=== PATIENT | male | born 1930 | race Caucasian/White ===

== ENCOUNTER 2019-08-31 10:53 | Inpatient (IN) | payer OTHER ==
[~2019-08-31] VITALS: Ht 170.2 cm; Wt 70.3 kg
[2019-08-31] MEDS ORDERED: FLOMAX0.4 MG PO (11:08)
[2019-08-31] MEDS ORDERED: FINASTERIDE1 MG PO (11:09)
[2019-08-31] MEDS ORDERED: DITROPAN XL10 MG PO (11:09)
[2019-08-31] MEDS ORDERED: NABUMETONE750 MG PO (11:10)
[2019-08-31] MEDS ORDERED: DULOXETINE HYDR20 MG PO (11:10)
[2019-08-31] MEDS ORDERED: PANTOPRAZOLE SO40 M1 PO (11:11)
[2019-08-31 11:57] LABS: CALCIUM 8.7 mg/dL (8.5-10.1); CARBON DIOXIDE 27.7 mmol/L (21-32); CHLORIDE SERUM 97 mmol/L (98-107); CREATININE SERUM 0.9 mg/dL (0.7-1.3); GLUCOSE SERUM 117 mg/dL (74-106); SODIUM SERUM 131 mmol/L (136-145)
[2019-08-31 12:07] LABS: ALBUMIN 3.8 g/dL (3.4-5.0); ALKALINE PHOSPHATASE 138 U/L (46-116); ALT/SGPT 20 U/L (16-63); AST/SGOT 19 U/L (15-37); C REACTIVE PROTEIN 0.2 mg/dL (<=0.9)
[2019-08-31 12:09] LABS: TOTAL PROTEIN, SERUM 6.1 g/dL (6.4-8.2)
--- NOTE | 2019-08-31 12:12 | NUR ---
1115 PT TO ER WITH C/O SOB X 1 MONTH. PT LIVES AT HOME WITH HIS SON AND STATES THAT HE DIDNT COME IN SOONER DUE TO HIS SONS AVAILABILITY. PT NOTED WITH SOB WHEN TALKING. PT IS AOX4. RESP ARE LABORED AND SHALLOW WITH DIMINISHED BREATH SOUNDS. SKIN IS WARM AND DRY. PT WITH NADN. PT BEING SCREEMED FOR COVID AT THIS TIME. PT ON SPECIAL PRECAUTIONS.
[2019-08-31 12:13] LABS: CK-MB 3.1 ng/mL (0-3.6)
[2019-08-31 12:14] LABS: T3 TOTAL 0.75 ng/mL
[2019-08-31 12:56] LABS: microscopic required? NO
[2019-08-31 13:04] LABS: FREE T4 1.61 ng/dL (0.76-1.46); FREE THYROXINE INDEX 4.5 ug/dL (1.4-4.5); T4(THYROXINE) 12.1 ug/dL (4.7-13.3)
[2019-08-31 13:09] LABS: ERYTHROCYTE SED RATE 12 mm/hr (0-20)
[2019-08-31 13:18] LABS: BASOPHIL % 0.4 % (0-2); PLATELET COUNT 91 x10^3mcL (130-400); RED CELL DISTRIBUTION WIDTH 15.3 % (11.5-14.5)
[2019-08-31 13:18] LABS: urine erythrocyte NEGATIVE (NEGATIVE)
[2019-08-31 13:53] VITALS: BP 174/90
--- NOTE | 2019-08-31 13:55 | NUR ---
SEEN BY DR. SMITH, PULMONOLIGIST.
--- NOTE | 2019-08-31 14:09 | NUR ---
REPORT CALLED TO MOR ON TELE.
--- NOTE | 2019-08-31 14:20 | NUR ---
RECEIVED PT FROM ER, PT ADMITTED FOR BILATERAL PNA, CHF, R/ COVID-19. PT AWAKE A/O X4,VERBALLY RESPONSIVE, LUNG SOUNDS BILATERAL FINE CRACKLES, SOB ON EXERTION. PT ON RA, O2 SAT 99%. PT ON TELE #11. PT DENIES CHEST PAIN OR DISCOMFORT. NO EDEMA NOTED, PULSES ARE PALPABLE. BOWEL SOUNDS ACTIVE IN ALL 4 QUADRANTS. IV IN LAC 20G. PT IS AMBULATORY AT BASELINE W/ CANE. ALL COMFORT AND SAFETY MEASURES PROVIDED. ALL CONCERNS AND NEEDS MET AT THIS TIME.
--- NOTE | 2019-08-31 14:30 | NUR ---
ECHOCARDIOGRAM PENDING, NO ROOM YET.
[2019-08-31 15:43] VITALS: BP 133/81
[2019-08-31 19:30] VITALS: BP 118/69
--- NOTE | 2019-08-31 19:30 | NUR ---
RECEIVED PT IN BED AWAKE, ALERT,ORIENTED X4. PT IS CALM AND IS WATCHING TV. LUNG SOUNDS W/ FINE CRACKLES AT THE BASES. NO SOB NOTED ON ROOM AIR. PT AFEBRILE AT 97.6 . HE HAS NO C/O PAIN. PT REQUESTING FOR SLEEPING PILL. W/ IVF NS AT TKO. CALL LIGHT W/IN REACH. PT ON DROPLET ISOLATION.
--- NOTE | 2019-08-31 19:40 | NUR ---
REPORT GIVEN TO TIARA EL. ALL QUESTIONS AND CONCERNS ADDRESSED. ALL CARES ENDORSED.
--- NOTE | 2019-08-31 21:25 | NUR ---
PT'S SON CALLED TO CHECK ON HIS FATHER. UPDATES GIVEN TO HIS SON.
--- NOTE | 2019-08-31 21:30 | NUR ---
PT MEDICATED W/ AMBIEN 5 MG PO FOR SLEEP .
--- NOTE | 2019-08-31 23:57 | NUR ---
PT APPEARS TO BE SLEEPING COMFORTABLY. NO SOB NOTED. PT IS ON ROOM AIR.
[2019-09-01 05:30] VITALS: BP 134/83
--- NOTE | 2019-09-01 05:30 | NUR ---
PT CALLED AND C/O HAVING SOB. PT PLACED ON O2 AT 2L N/C. AFTER A FEW MINUTES V/S TAKEN AND PT SATTING 100 %. PT THEN REQUESTED TO SIT ON THE CHAIR. HELPED PT GET OOB TO THE CHAIR. PT WATCHED TV. INSTRUCTED PT TO CALL WHEN HE IS READY TO GO BACK TO BED. CALL LIGHT W/IN REACH.
[2019-09-01 06:26] LABS: BASOPHIL % 0.2 % (0-2)
[2019-09-01 06:30] LABS: CALCIUM 8.7 mg/dL (8.5-10.1); CARBON DIOXIDE 28.6 mmol/L (21-32); CHLORIDE SERUM 97 mmol/L (98-107); CREATININE SERUM 0.9 mg/dL (0.7-1.3); GLUCOSE SERUM 99 mg/dL (74-106); SODIUM SERUM 135 mmol/L (136-145)
[2019-09-01 06:45] LABS: PLATELET COUNT 98 x10^3mcL (130-400)
--- NOTE | 2019-09-01 06:55 | NUR ---
PT SLEPT THROUGH THE NIGHT AFTER TAKING AMBIEN. HE REMAINS ALERT AND ORIENTED X4. HE HAD NO C/O PAIN. PT ON O2 AT 2L N/C AFTER HE COMPLAINED OF SOB . HE VOIDS VIA URINAL. NO BM NOTED. ALL NEEDS ATTENDED TO.
--- NOTE | 2019-09-01 07:30 | NUR ---
PT IS AAOX4. TELE [address] READING FIRST DEGREE AVB WITH INTERMITTENT PVCS AND PACS. RESP EVEN, SHALLOW WITH SOB. RR 25 BPM. NO COUGH NOTED. ON 02 N/C AT 1 LPM. 02 SAT 99%. SKIN CDI, NO EDEMA. PERIPHERAL SKIN WARM, CAP REFILL < 3 SECONDS. PT DENIES C/P AND PRESSURE. CALL LIGHT WITHIN REACH.
[2019-09-01 08:00] VITALS: BP 143/78
--- NOTE | 2019-09-01 08:16 | NUR ---
SPOKE WITH PT'S SON UBALDO ESTRADA. UBALDO STATED HE GIVES PERMISSION FOR HIS CONNIE TO CALL FOR UPDATES. PT MADE AWARE AND AGREES WITH REQUEST.
--- NOTE | 2019-09-01 09:00 | NUR ---
PT RECEIVING ECHO AT THIS TIME.
--- NOTE | 2019-09-01 09:50 | NUR ---
PT IS SITTING UP IN BED EATING BREAKFAST. O2 N/C IN PLACE AT 2 LPM. PT DENIES PAIN. PT TAUGHT TO SIT UP IN BED TO AID BREATHING. PT VERBAIZED UNDERSTANDING. IV LASIX AND SCHEDULED MEDS GIVEN. B/P 143/78, HR 87. PT DENIES PAIN AT THIS TIME. DROPLET PRECAUTIONS MAINTAINED. CALL LIGHT WITHIN REACH. BED IN LOWEST POSITION.
--- NOTE | 2019-09-01 11:07 | NUR ---
REPORTED TO DR. HOOD THAT PT'S ECG FOR TODAY IS DIFFERENT FROM INITIAL EKG READING. PT IS NOTED WITH FIRST DEGREE AVB, INTERMITTENT PACS, PVCS AND PT HAD AN EPISODE OF AFIB. PT DENIES C/P, PRESSURE OR PALPTITATIONS. NO NEW ORDERS AT THIS TIME.
--- NOTE | 2019-09-01 12:52 | NUR ---
PT ASSISTED WITH LUNCH TRAY SET-UP. SCHEDULED MEDS GIVEN AND TOLERATED WELL. PT EDUCATED ON SCD'S APPLICATION AND BENEFITS. PT ENCOURAGED TO CALL FOR HELP WHEN GETTING UP OUT OF BED. PT VERBALIZED UNDERSTANDING. DENIES PAIN. 02 N/C AT [address] CALL LIGHT WITHIN REACH. DROPLET PRECAUTIONS MAINTAINED.
[2019-09-01 13:00] VITALS: BP 132/83
--- NOTE | 2019-09-01 15:11 | NUR ---
DR SOSA MET WITH PT. DR. SOSA WILL CONTACT PT'S SON AND DISCUSS POC. ZITHROMAX IVPB INTIATED. RESP EVEN AND UNLABORED. NO DISTRESS NOTED. DROPLET PRECAUTIONS MAINTAINTED. CALL LIGHT WITHIN REAHC. PT DENIES PAIN .
[2019-09-01 17:00] VITALS: BP 143/78
--- NOTE | 2019-09-01 18:51 | NUR ---
PT C/O IV TO LFA DOESN'T ALLOW HIM TO BEND HIS ARM WITHOUT STOPPING FLUIDS. NEW IV CATH STARTED TO RFA 22 G ON FIRST ATTEMPT. SITE WNL, COVERED WITH CDI DRESSING. PT DENIES PAIN AND DISCOMFORT. TELE [address] READING NSR WITH PVCS AND PACS. IV CATH TO LAC AND RFA BOTH SITE WNL. CALL LIGHT WITHIN REACH. WILL ENDORSE ALL CARE TO NOC RN. DROPLET PRECAUTIONS MAINTAINED THROUGH OUT SHIFT.
--- NOTE | 2019-09-01 19:30 | NUR ---
RECEIVED PT FROM DAY SHIFT RN. PT AAOX4, DENIES [place]/DIZZINESS. BREATHING EVEN AND UNLABORED ON 1L/MIN NC WITH NO SOB NOTED. TELE #11 NSR HR 71, PT DENIES CHEST PAIN/PRESSURE. ABD SOFT/ROUND, ACTIVE BOWEL SOUNDS, DENIES ABD PAIN/N/V. IV LAC PATENT, SL. IV RFA PATENT, SL. NO ACUTE DISTRESS NOTED. CALL BUTTON WITHIN REACH. SAFETY PRECAUTIONS IN PLACE. DROPLET/CONTACT PRECAUTIONS IN PLACE. WILL MONITOR.
[2019-09-01 20:26] VITALS: BP 110/59
--- NOTE | 2019-09-01 22:57 | NUR ---
SPOKE TO DR HOOD AT THIS TIME, PATIENT REQUESTING FOR STOOL SOFTNER. NEW ORDERS RECEIVED AND CARRIED OUT.
--- NOTE | 2019-09-02 02:34 | NUR ---
PATIENT IS SLEEPING, EASILY AROUSABLE. NO ACUTE DISTRESS NOTED. CALL BUTTON WITHIN REACH. SAFETY PRECAUTIONS IN PLACE. WILL CONTINUE TO MONITOR. ISOLATION PRECAUTIONS IN PLACE.
--- NOTE | 2019-09-02 06:09 | NUR ---
PATIENT RHYTHM CHANGE THIS MORNING TO SINUS ARRYTHMIA WHEN PATIENT GOT UP FROM BED AND WALKED TO THE BATHROOM. PATIENT BACK IN BED WITH NO SIGNS OF DISTRESS. VS STABLE. ON 1.5L/MIN NO SOB NOTED. DENIES CHEST PAIN. PATIENT CURRENT RHYTHM AT SR WITH PAC, PVC. DR HOOD MADE AWARE, NO NEW ORDERS.
--- NOTE | 2019-09-02 06:11 | NUR ---
PT SLEPT MOST OF THE NIGHT WITH NO ACUTE DISTRESS NOTED. MEDICATED PER EMAR. PT DENIES ANY PAIN. BREATHING EVEN/UNLABORED ON NC 1.5L/MIN NO SOB NOTED. MEDICATED PER EMAR. AMBULATORY WITH MINIMAL ASSIST. PT USES URINAL. CALL BUTTON WITHIN REACH. SAFETY PRECAUTIONS IN PLACE. DROPLET/CONTACT PRECAUTIONS IN PLACE. WILL CONTINUE TO MONITOR AND ENDORSE CARE TO DAY SHIFT RN.
[2019-09-02 06:40] VITALS: BP 135/85
[2019-09-02 07:24] LABS: BASOPHIL % 0.3 % (0-2)
[2019-09-02 07:44] LABS: CALCIUM 8.8 mg/dL (8.5-10.1); CARBON DIOXIDE 32.6 mmol/L (21-32); CHLORIDE SERUM 94 mmol/L (98-107); GLUCOSE SERUM 100 mg/dL (74-106); POTASSIUM SERUM 3.8 mmol/L (3.5-5.1); SODIUM SERUM 133 mmol/L (136-145)
--- NOTE | 2019-09-02 07:46 | NUR ---
NO ACUTE DISTRESS NOTED. ENDORSED CARE TO DAY SHIFT RN. ALL QUESTIONS ADDRESSED.
--- NOTE | 2019-09-02 08:03 | NUR ---
RECEIVED PATIENT FROM SIENNA GREEN. PATIENT IN BED AT THIS TIME, NO COMPLAINTS OF PAIN OR SOB. SPOKE WITH PATIENT ABOUT MEDICATIONS THIS MORNING AND PATIENT AGREES. ALSO REINSTRUCTED PATIENT ON USE OF CALL LIGHT, BED CONTROLS AND SAFETY. PATIENT VERBALIZES UNDERSTANDING. PATIENT AWARE TO WAIT FOR DR HOOD TO ARRIVE TO SPEAK TO HIM. CALL LIGHT IN REACH AT THIS TIME.
[2019-09-02 08:04] VITALS: BP 134/83
[2019-09-02 08:06] LABS: PLATELET COUNT 106 x10^3mcL (130-400); RED CELL DISTRIBUTION WIDTH 16.4 % (11.5-14.5)
--- NOTE | 2019-09-02 11:38 | NUR ---
DR HOOD AND DR KUMAR IN TO SEE PATIENT. COVID TEST RESULTS ARE NEGATIVE. DR KUMAR AND DR HOOD HAS CLEARED PATIENT. DR HOOD THEN SPOKE WITH PATIENT SON OVER TELEPHONE ABOUT POSSIBLE HOME HEALTH AND UPDATE TO PATIENT CONDITION. EXPLAINED TO PATIENT HE CANNOT LEAVE YET UNTIL FULL ORDERS ARE IN PLACE AND PT HAS EVALUATED HIM, AND HH TO BE SET UP. REMOVED FROM ISOLATION. CALL LIGHT IN REACH. TELE REMOVED AND RETURNED TO [facility].
--- NOTE | 2019-09-02 12:04 | NUR ---
TARA DATABASE REPORT WRITER DIALED AND STATED THAT SHE IS GOING TO ARRANGE TRANSPORT AROUND 2:30 PM PATIENT FAMILY WANTS HIM TO BE TRANSPORTED AND NOT DRIVE HIMSELF. PT KISHA HAS ALSO ARRIVED FOR EVAL.
[2019-09-02 12:19] VITALS: BP 134/83
--- NOTE | 2019-09-02 12:49 | NUR ---
DISCHARGE INSTRUCTIONS GIVEN AND EXPLAINED TO PATIENT. PATIENT AWARE TO FU WITH PCP WITHIN 2 TO 3 DAYS, WOOD CARVING LATHE OPERATOR PRESCRIPTIONS JAYLEEN, AND THAT PATIENT WILL HAVE HOME HEALTH AGENCY CONTACT HIM FOR FOLLOW UP APPOINTMENT. PATIENT VERBALIZES UNDERSTANDING AND AGREES. PATIENT ALSO TOLD CITY EDITOR WILL IS ARRANGING TRANSPORT AND THAT FAMILY WILL RETURN HERE TO [facility] TO WOOD CARVING LATHE OPERATOR HIS CAR. PATIENT AWARE. IV CATHETERS REMOVED AND INTACT. CURRENTLY EATING LUNCH, WILL ESCORT PATIENT DOWNSTAIRS ONCE RIDE ARRIVES.
--- NOTE | 2019-09-02 13:00 | NUR ---
PNEUMOVAX IM GIVEN
--- NOTE | 2019-09-02 14:01 | NUR ---
SPOKE WITH PATIENT [id number] ABOUT TRANSPORT, THERE WAS CONFUSION WITH HAND BENDER TARA. FAMILY FRIEND HAS NOW ARRIVED. PATIENT ESCORTED DOWNSTAIRS VIA WHEELCHAIR TO FAMILY FRIEND. WITH BELONGINGS, DISCHARGE PACKET, AND PRESCRIPTION.
== END 2019-09-02 13:50 | disposition home health service (06) | DRG 291 ==
LOC: ED 10:53 → DU 12:54
PROVIDERS: Specialist; ADMIT Internal Medicine
DX: I11.0 Hypertensive heart disease with heart failure (principal); J96.01 Acute respiratory failure with hypoxia; J18.9 Pneumonia, unspecified organism; I50.43 Acute on chronic combined systolic (congestive) and diastolic (congestive) heart failure; I42.9 Cardiomyopathy, unspecified; I08.0 Rheumatic disorders of both mitral and aortic valves; N40.0 Benign prostatic hyperplasia without lower urinary tract symptoms; J45.909 Unspecified asthma, uncomplicated; Z96.643 Presence of artificial hip joint, bilateral
CPT/HCPCS: 36600; 83880; 84439; 87804; 90732; 97116-GP; C9113; G0378; J0456; J0696; J1940; J2543; J7030; J7050; J7060; Q0092; U0002